=== PATIENT | female | born 2000 | race African-American/Black ===

== ENCOUNTER 2023-04-10 17:42 | Emergency (ER) | payer MEDICAID ==
[~2023-04-10] VITALS: Ht 157.5 cm; Wt 117.0 kg
[2023-04-10] MEDS ORDERED: ACETAMINOPHEN 325MG TABLET PO STA (18:39)
[2023-04-10 19:04] LABS: BASOPHILS % 0.4 % (0.0-2.0); CLARITY URINE CLOUDY (CLEAR); COLOR URINE YELLOW (YELLOW); EOSINOPHILS % 0.8 % (0.0-5.0); HEMATOCRIT. 35.5 % (36.0-48.0); HEMOGLOBIN. 11.6 g/dL (12.0-16.0); KETONES URINE TRACE (NEGATIVE); LEUKOCYTE ESTERASE URINE 2+ (NEGATIVE); LYMPHOCYTES % 29.6 % (20.0-50.0); MEAN CORPUSCULAR HEMOGLOBIN 24.3 pg (28.0-32.0); MEAN CORPUSCULAR VOLUME 74.1 fL (81.0-99.0); MONOCYTES % 6.9 % (2.0-8.0); NEUTROPHILS % 62.3 % (40.0-76.0); NITRITE URINE NEGATIVE (NEGATIVE); OCCULT BLOOD URINE NEGATIVE (NEGATIVE); PH URINE 5.5 (4.5-8.0); PLATELET 409 x1000/uL (130-400); PROTEIN URINE NEGATIVE (NEGATIVE); RED BLOOD CELL COUNT 4.79 mill/uL (4.2-5.4); RED CELL DISTRIBUTION WIDTH 14.4 % (11.6-14.6); SPECIFIC GRAVITY URINE 1.021 (1.005-1.030)
[2023-04-10 19:11] LABS: HCG SCREEN NEGATIVE
[2023-04-10 19:12] LABS: CHLORIDE 109 mEq/L (98-107)
[2023-04-10 19:40] VITALS: BP 100/52
[2023-04-10] MEDS ORDERED: IBUP-2029 MT (19:41)
== END 2023-04-10 19:45 | disposition home or self-care (01) ==
LOC: ER 17:42
DX: R07.89 Other chest pain (principal)
CPT/HCPCS: 36415; 71045; 80053; 81003; 84703; 85025; 85379; 93005; 99285